=== PATIENT | male | born 1945 | race Caucasian/White ===

== ENCOUNTER 2016-10-19 11:56 | Emergency (ER) | payer MEDICARE ==
[2011-02-15 09:12] VITALS: BMI 26.6
[2016-10-19 12:49] LABS: APPEARANCE HAZY (CLEAR); BACTERIA MODERATE /hpf (NONE SEEN); BILIRUBIN NEGATIVE (NEGATIVE); COLOR YELLOW (YELLOW); EPITHELIAL CELLS 0-5 /hpf (0-5); GLUCOSE NEGATIVE (NEGATIVE); KETONE NEGATIVE (NEGATIVE); LEUKOCYTE ESTERASE 1+ (NEGATIVE); NITRITE POSITIVE (NEGATIVE); PROTEIN NEGATIVE (NEGATIVE); RED CELLS - URINE OCC /hpf (0-5); SPECIFIC GRAVITY 1.015 (1.005-1.020); UROBILINOGEN NORMAL (NORMAL); WHITE CELLS - URINE >50 /hpf (0-5)
[2016-10-19 12:51] LABS: UDS - AMPHET NEGATIVE QUAL (NEGATIVE); UDS - BARB NEGATIVE QUAL (NEGATIVE); UDS - BENZO NEGATIVE QUAL (NEGATIVE); UDS - COCAINE NEGATIVE QUAL (NEGATIVE); UDS - METH NEGATIVE QUAL (NEGATIVE); UDS - OPIATE NEGATIVE QUAL (NEGATIVE); UDS - PCP NEGATIVE QUAL (NEGATIVE); UDS - THC NEGATIVE QUAL (NEGATIVE)
[2016-10-19 12:52] LABS: BASOPHILS 0.3 % (0.0-2.0); EOSINOPHILS 0.3 % (0-7); HEMATOCRIT 45.3 % (42.0-54.0); HEMOGLOBIN 15.7 g/dL (13.5-17.5); IMMATURE GRANULOCYTES 0.4 % (0-5); LYMPHOCYTES 16.6 % (15-50); MCH 34.1 pg (26.0-34.0); MCHC 34.7 g/dL (31.0-37.0); MCV 98.5 fL (80.0-100.0); MEAN PLATELET VOLUME 10.3 fL (7.4-10.4); MONOCYTES 10.4 % (2-11); PLATELET COUNT 176 10x3/uL (130-400); RDW 13.6 % (11.5-14.5); WBC 7.7 10x3/uL (4.8-10.8)
[2016-10-19 13:09] LABS: ALBUMIN 3.9 g/dL (3.4-5.0); ANION GAP 10.5 mmol/L (8-16); BILIRUBIN - TOTAL 0.5 mg/dL (0.2-1.3); CALCIUM 9.1 mg/dL (8.5-10.1); CARBON DIOXIDE 30.5 mmol/L (21.0-32.0); CREATININE - SERUM 1.7 mg/dL (0.6-1.3); PROTEIN - SERUM 7.7 g/dL (6.4-8.2)
[2016-10-31 09:19] VITALS: BMI 26.3
== END 2016-10-19 17:08 | disposition short-term general hospital (02) ==
LOC: D.ER 11:56
PROVIDERS: Emergency Medicine
DX: R45.851 Suicidal ideations (principal); F10.10 Alcohol abuse, uncomplicated; E86.0 Dehydration; N39.0 Urinary tract infection, site not specified; F41.9 Anxiety disorder, unspecified; I27.2 Other secondary pulmonary hypertension

== ENCOUNTER 2016-10-28 17:26 | Inpatient (IN) | payer MEDICARE ==
[~2016-10-28] VITALS: Ht 175.3 cm; Wt 80.9 kg
[2016-10-28 18:30] LABS: APPEARANCE CLEAR (CLEAR); BILIRUBIN NEGATIVE (NEGATIVE); COLOR YELLOW (YELLOW); GLUCOSE NEGATIVE (NEGATIVE); KETONE NEGATIVE (NEGATIVE); LEUKOCYTE ESTERASE NEGATIVE (NEGATIVE); NITRITE NEGATIVE (NEGATIVE); PROTEIN TRACE mg/dL (NEGATIVE); UROBILINOGEN NORMAL (NORMAL)
[2016-10-28 18:32] LABS: BASOPHILS 0.2 % (0.0-2.0); EOSINOPHILS 1.3 % (0-7); HEMATOCRIT 45.4 % (42.0-54.0); HEMOGLOBIN 15.9 g/dL (13.5-17.5); IMMATURE GRANULOCYTES 0.3 % (0-5); LYMPHOCYTES 16.5 % (15-50); MCH 34.6 pg (26.0-34.0); MCV 98.7 fL (80.0-100.0); MEAN PLATELET VOLUME 10.5 fL (7.4-10.4); MONOCYTES 11.5 % (2-11); NEUTROPHILS 70.2 % (40-80); RDW 13.5 % (11.5-14.5); WBC 10.8 10x3/uL (4.8-10.8)
[2016-10-28 18:35] LABS: UDS - AMPHET NEGATIVE QUAL (NEGATIVE); UDS - BARB NEGATIVE QUAL (NEGATIVE); UDS - BENZO NEGATIVE QUAL (NEGATIVE); UDS - COCAINE NEGATIVE QUAL (NEGATIVE); UDS - METH NEGATIVE QUAL (NEGATIVE); UDS - OPIATE NEGATIVE QUAL (NEGATIVE); UDS - PCP NEGATIVE QUAL (NEGATIVE); UDS - THC NEGATIVE QUAL (NEGATIVE)
[2016-10-28 18:38] LABS: PLATELET COUNT 224 10x3/uL (130-400)
[2016-10-28 19:01] LABS: ALKALINE PHOSPHATASE 58 U/L (46-116); ALT (SGPT) 82 U/L (10-68); BILIRUBIN - TOTAL 0.41 mg/dL (0.2-1.3); CALC OSMOLALITY 289 mosm/kg (275-300); CALCIUM 9.2 mg/dL (8.5-10.1); CARBON DIOXIDE 26.6 mmol/L (21.0-32.0); CHLORIDE - SERUM 102 mmol/L (98-107); CREATININE - SERUM 1.7 mg/dL (0.6-1.3); GLUCOSE 109 mg/dL (74-106); POTASSIUM - SERUM 4.9 mmol/L (3.5-5.1); PROTEIN - SERUM 8.2 g/dL (6.4-8.2); SODIUM 137 mmol/L (136-145); UREA NITROGEN 55 mg/dL (7-18); eGFR NON AFRICAN AMERICAN 43 mL/min (90-120)
[2016-10-28 19:02] LABS: ALCOHOL - BLOOD (MEDICAL) < 3.0 mg/dL (0.0-10.0)
[2016-10-28 22:15] VITALS: BP 127/74
[2016-10-28] MEDS ORDERED: DYAZIDE 37.5/251 CAP PO (22:47)
[2016-10-28] MEDS ORDERED: NEURONTIN600 MG PO (22:48)
[2016-10-28] MEDS ORDERED: COREG12.5 MG PO (22:49)
[2016-10-28] MEDS ORDERED: CYMBALTA30 MG PO (22:50)
[2016-10-28] MEDS ORDERED: TOPROL XL50 MG PO (22:56)
[2016-10-28] MEDS ORDERED: HYDROXYZINE HCL10 MG PO (22:58)
[2016-10-28] MEDS ORDERED: CHLORTHALIDONE25 MG PO (22:59)
--- NOTE | 2016-10-29 01:27 | NUR ---
RECIEVED FROM EMERGENCY DEPARTMENT VIA WHEELCHAIR AT 2215, ALERT AND ORIENTED X 4, ADMITED FOR SUICIDAL IDEATION, PLAN TO TAKE ALL HIS TRAZADONE, NO S.I. AT THIS TIME, CONTRACTED FOR SAFETY, CONSENTS SIGNED , MONITORED FOR FOR SUICIDE ATTEMPTS, ORIENTED TO UNIT AND HIS ROOM, WILL CONTINUE TO MONITOR, CONTINUE PLAN OF CARE.
[2016-10-29 04:09] VITALS: BP 127/74; BMI 26.2
[2016-10-29 06:10] LABS: BASOPHILS 0.3 % (0.0-2.0); EOSINOPHILS 1.4 % (0-7); HEMATOCRIT 41.9 % (42.0-54.0); HEMOGLOBIN 14.7 g/dL (13.5-17.5); IMMATURE GRANULOCYTES 0.3 % (0-5); MCH 34.2 pg (26.0-34.0); MCHC 35.1 g/dL (31.0-37.0); MCV 97.4 fL (80.0-100.0); MEAN PLATELET VOLUME 9.8 fL (7.4-10.4); RDW 13.4 % (11.5-14.5)
[2016-10-29 06:14] LABS: PLATELET COUNT 173 10x3/uL (130-400); WBC 7.9 10x3/uL (4.8-10.8)
[2016-10-29 06:28] LABS: HEMOGLOBIN A1C 5.6 % (4.8-6.0)
[2016-10-29 06:32] LABS: ALBUMIN 3.5 g/dL (3.4-5.0); ANION GAP 14.6 mmol/L (8-16); BILIRUBIN - TOTAL 0.5 mg/dL (0.2-1.3); CALCIUM 9.4 mg/dL (8.5-10.1); CARBON DIOXIDE 24.6 mmol/L (21.0-32.0); CHOL - HDL RATIO 4.3 ratio (2.3-4.9); CREATININE - SERUM 1.4 mg/dL (0.6-1.3); LDL-HDL RATIO 1.4 ratio (1.5-3.5); POTASSIUM - SERUM 4.2 mmol/L (3.5-5.1); PROTEIN - SERUM 7.4 g/dL (6.4-8.2); THYROID STIMULATING HORMONE 1.71 uIU/mL (0.36-3.74)
[2016-10-29 08:38] VITALS: BP 129/83
--- NOTE | 2016-10-29 10:24 | NUR ---
PT DENIES SUICIDAL IDEATION BUT HE DOES ADMIT TO FEELING THAT WAY PRIOR TO COMING TOT HE HOSPITAL. "I FEEL SAFE HERE AND I KNOW I AM GOING TO GET HELP". PT DOES EXPRESS SEVERE ANXIETY. COPING SKILLS REVIEWED WITH PT AND ENCOURAGED PT TO EXPRESS FEELINGS TO STAFF. DENIES DEPRESSION. MED COMPLIANT. WILL CONTINUE WITH PLAN OF CARE.
[2016-10-29 19:30] VITALS: BP 150/89
--- NOTE | 2016-10-29 20:13 | NUR ---
RECEIVED IN DAYROOM. SETTING IN RECLINER WITH PEERS AT HIS SIDE, NO SOCIALIZING. CALM AND COOPERATIVE WITH CARE AND ASSESSMENT. STATES THAT HE FEELS GOOD AT THIS TIME. ENCOURAGE TO EXPRESS NEEDS. CONTINUES TO SET QUIETLY IN CHAIR. CONTINUE PLAN OF CARE
[2016-10-30 10:32] LABS: APPEARANCE CLEAR (CLEAR); BACTERIA MANY /hpf (NONE SEEN); BILIRUBIN NEGATIVE (NEGATIVE); COLOR YELLOW (YELLOW); EPITHELIAL CELLS RARE /hpf (0-5); GLUCOSE NEGATIVE (NEGATIVE); KETONE NEGATIVE (NEGATIVE); LEUKOCYTE ESTERASE 1+ (NEGATIVE); NITRITE POSITIVE (NEGATIVE); PROTEIN NEGATIVE (NEGATIVE); RED CELLS - URINE RARE /hpf (0-5); UROBILINOGEN NORMAL (NORMAL)
[2016-10-30 11:20] VITALS: BP 138/69
--- NOTE | 2016-10-30 17:55 | NUR ---
Alert and oriented time three. Verbalized yes he did try to harm self but " I was feeling pretty down, but i'm hopeful now." Isolatory in day room but participated in group. Contracted for safety. Encouraged to verbalize feelings and socialize with peers. Compliant with medications. Continue plan of care.
--- NOTE | 2016-10-30 19:59 | NUR ---
RECEIVED IN DAYROOM. SETTING IN RECLINER. ISOLATING FROM OTHERS. DENIES THOUGHTS OF SELF HARM AT THIS TIME. ENCOURAGE TO EXPRESS NEEDS AND FEELINGS. ALERT AND ORIENTED X4. CONTINUES TO SET QUIETLY TO HIMSELF. CONTINUE PLAN OF CARE
[2016-10-30 20:37] VITALS: BP 138/81
[2016-10-31 06:13] LABS: RAPID PLASMA REAGIN Non Reactive (Non Reactive); VITAMIN D 25 HYDROXY 13.5 ng/mL (30.0-100.0)
[2016-10-31 09:19] VITALS: Ht 175.3 cm; Wt 80.9 kg
[2016-10-31 14:08] VITALS: BP 160/97
[2016-10-31 14:23] LABS: FOLATE (FOLIC ACID) - SERUM 19.5 ng/mL (>3.0)
--- NOTE | 2016-10-31 14:57 | PSY ---
PATIENT NAME:ALBERTO OVERTON JR MEDICAL RECORD: [id number] : 49 LOCATION:[facility] ADMISSION DATE: 10/28/16 ACCOUNT: [id number] PSYCHIATRIC EVALUATION DATE OF EVALUATION: 10/30/16 Psychiatric Evaluation IDENTIFYING DATA: The patient is 71 years old and he is admitted to the hospital on a voluntary basis. CHIEF COMPLAINT: Suicidal thoughts. HISTORY OF PRESENT ILLNESS: The patient presented to the Emergency Room for the third time in recent weeks and expressed a high degree of distress. He said he was going to kill himself. He said he had a plan. He endorsed numerous neurovegetative depressive symptoms. He indicated that he had recently been released from alcohol detoxification at the [facility] and is having overwhelming emotional distress and the patient was admitted to the hospital for evaluation and treatment of these underlying symptoms. PAST MEDICAL HISTORY: Significant for hypertension. PAST PSYCHIATRIC HISTORY: Significant for longstanding problems with anxiety and alcoholism. He has never attempted to harm himself in the past. He has never threatened to harm himself in the past. He says it has crossed his mind from time to time over the years, but he has never done so. He has never been hospitalized for any psychiatric or behavioral reasons. However, he was recently in the detox program at the [facility] and he did complete it. FAMILY HISTORY: Significant for anxiety and substance abuse. ALLERGIES: No known drug allergies. MEDICATIONS: Include gabapentin, Cymbalta, metoprolol, Coreg, Atarax. SOCIAL HISTORY: The patient is retired. He is originally from [place], [place]. 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 He has supportive family members and no history of legal entanglements. MENTAL STATUS EXAMINATION: The patient is awake, alert and oriented to person, place, time and situation. His mood is anxious. His affect is constricted. Thought processes are circumstantial. Memory, concentration and abstraction abilities are moderately impaired and he denies any active intent to harm himself or others as well as overt psychotic symptoms. ASSETS: Supportive family members. LIABILITIES: Limited insight. DIAGNOSTIC IMPRESSION: AXIS I: Major depression, severe, single episode with suicidal thoughts. Alcohol abuse. AXIS II: None. AXIS III: Hypertension. AXIS IV: Mild stressors. AXIS V: Global assessment of functioning is 35. PLAN: At this time, the patient is admitted to the hospital secondary to anxiety, probably associated with alcohol abuse and withdrawal. I do plan to treat him with Cymbalta and will increase the dose slightly. He says that the anxiety was helped for many years with Effexor and that it stopped working and that is why it was discontinued. I do not know what dose he was taking and he cannot recall. He does name a number of other medications that did not help. Interestingly, he did not appear to be drug seeking for a benzodiazepine, although he may try to do so tomorrow. I do not feel comfortable with him leaving the hospital today given how anxious he is and how recently, he was having very suicidal thoughts. TRANSINT:[id number] Voice Confirmation ID: [id number] DOCUMENT ID: [id number] NELA RAMOS MD at 1457 CC: [id number] DICTATION DATE: 10/30/16 1346 DOLLY PUSHER: 10/30/16 1423 ADM IN [facility] [address] [place] [address]
--- NOTE | 2016-10-31 16:40 | NUR ---
RECEIVED THIS AM SITTING IN CHAIR IN HALLWAY AT NURSES STATION.IS ORIENTED ,CALM AND COOPERATIVE.SITS AND OBSERVES PEERS BUT IS NOT OBSERVED TALKING WITH PEERS.ASK FOR MED TO CALM NERVES,ATIVAN PO GIVEN PER ORDERS.COMPLIANT WITH MEDS.WILL CONTINUE WITH PLAN OF CARE,MONITOR FOR CHANGES AND SAFETY.
[2016-10-31 19:28] VITALS: BP 133/86
--- NOTE | 2016-10-31 23:16 | NUR ---
RECEIVED IN DAYROOM. SETTING IN WHEELCHAIR ISOLATED FROM HIS PEERS. NOT SOCIALIZING. CALM AND COOPERATIVE WITH CARE AND ASSESSMENT. DENIES THOUGHT OF SELF HARM AT THIS TIME. ENCOURAGE TO EXPRESS NEEDS. PM MEDS GIVEN ORDERED. RESTING EYES CLOSED AT THIS TIME. CONTINUE PLAN OF CARE
[2016-11-01 07:57] VITALS: BP 154/95
--- NOTE | 2016-11-01 11:10 | NUR ---
Patient asked this nurse if he had ativan ordered for when he requests it. Did look at patient's MAR and the ativan has been discontinued, did let patient be aware.
--- NOTE | 2016-11-01 11:30 | NUR ---
Dr. Juarez visited with patient and patient said "I hate this f---ing room" Dr. Juarez asked him if he would like to go home. Patient said "No, I just don't think I can provide food for myself" Dr. Juarez made suggestions to go to [facility] or some place similar. Patient said he did not have funds, Dr. Juarez said he would speak with [facility] Hadoop Analyst to see what is available to him. Patient is in agreement.
--- NOTE | 2016-11-01 11:45 | NUR ---
Patient moved out of the day room and sat in the tapia way alone.
--- NOTE | 2016-11-01 12:46 | PN ---
PATIENT:ALBERTO OVERTON JR MEDICAL RECORD: [id number] LOCATION:[facility] ADMISSION DATE: 10/28/16 PROGRESS NOTE DATE OF SERVICE: 10/31/2016 SUBJECTIVE: The patient's case was discussed with staff. He has no new complaint. OBJECTIVE: The patient denies intent to harm himself or others. He does tolerate his medications well. He is participating in treatment reasonably well. ASSESSMENT: No change in diagnoses. PLAN: The patient still has a great deal of anxiety. He has had no psychotic symptoms and does not want to harm himself. I am going to increase his Cymbalta tomorrow and anticipate he could be transitioned out of the hospital soon. TRANSINT:[id number] Voice Confirmation ID: [id number] DOCUMENT ID: [id number] NELA RAMOS MD at 1246 CC: [id number] DICTATION DATE: 10/31/16 1523 DIVERSIFIED CROPS SUPERVISOR: 10/31/16 1555 ADM IN [id number] [place] [address]
--- NOTE | 2016-11-01 13:54 | NUR ---
B.) Alert and oriented times four. Pleasant and cooperative with care. I.) Administer medications and monitor compliance. Monitor for any suicidal ideations. Encourage group participation and monitor safety. R.) Compliant with medications. No suicidal ideations, [facility] Contracted for safety. Sits quietly in his chair and sometimes will isolate and briefly socialize. Safety maintained. P.) Continue plan of care.
--- NOTE | 2016-11-01 14:46 | NUR ---
Patient just told staff that he would like to go home, he said [facility] Contacted Dr. Juarez and he said "Sure, he is not suicidal or homicidal, so he may go" states he will discharge him as soon as he has computer access. Will relay this to patient.
[2016-11-01] MEDS ORDERED: VITAMIN D5000 UNIT PO (16:51)
[2016-11-01] MEDS ORDERED: CYMBALTA30 MG PO (16:51)
[2016-11-01] MEDS ORDERED: FOLIC ACID1 MG PO (16:52)
[2016-11-01] MEDS ORDERED: THIAMINE HCL50 MG PO (16:53)
--- NOTE | 2016-11-01 18:00 | NUR ---
Patient requested to get a Taxi to home, called house superviser and ER Admissions and received voucher for patient.
--- NOTE | 2016-11-01 18:30 | NUR ---
Patient is provided d/c explaination, ron called to pharmacy, handwritten med for ecoli in urine sent with patient, belongings brought in from ER safe, patient changed into clothes from scrubs. Provided information about [facility], patient said he is going to see Dr. Wolf at the [place], did try to call them for an appt., but offices closed.
--- NOTE | 2016-11-01 18:48 | NUR ---
Patient d/c'd from unit, d/c orders, patient escorted to ER for taxi drive home.
--- NOTE | 2016-11-02 14:53 | PN ---
PATIENT:ALBERTO OVERTON JR MEDICAL RECORD: [id number] LOCATION:[facility] ADMISSION DATE: 10/28/16 PROGRESS NOTE DATE OF SERVICE: 11/01/2016 SUBJECTIVE: The patient's case was discussed with staff. He has no new complaint. OBJECTIVE: The patient is in good behavioral control with limited insight about his condition. He tolerates his medicines well. He denies that he would seek to harm himself. ASSESSMENT: No change in diagnoses. PLAN: Current medicines and therapies have been reviewed and will be maintained. Long-term prognosis is guarded. The patient is going to be referred to inpatient residential substance abuse treatment. TRANSINT:[id number] Voice Confirmation ID: [id number] DOCUMENT ID: [id number] NELA RAMOS MD at 1453 CC: [id number] DICTATION DATE: 11/01/16 1256 LEAD RECREATION ASSISTANT: 11/01/16 1314 DIS IN 11/01/16 [id number] [place] [address]
--- NOTE | 2016-11-09 13:22 | DS ---
PATIENT:ALBERTO OVERTON JR :49 MEDICAL RECORD: [id number] DISCHARGE SUMMARY ADMISSION DATE: 10/28/16 DISCHARGE DATE: 11/01/16 Psychiatric Discharge Summary IDENTIFYING DATA: The patient is 71 years old and he was admitted to the hospital on a voluntary basis secondary to suicidal thoughts. The patient presented to the Emergency Room and expressed a high degree of distress. He said he was going to kill himself and that he had a plan. He endorsed numerous neurovegetative depressive symptoms, he said he had recently been released from an alcohol detoxification program at the [facility] and was having overwhelming emotional distress. He was admitted to the behavioral unit because of his depressive symptoms and suicidal thoughts. HOSPITAL COURSE: The patient was admitted to the hospital and fully evaluated from both the medical, psychological, and social standpoint. The patient was engaged in some drug seeking behavior, insisting that he needed a benzodiazepine to calm his anxiety. He minimized his depressive symptoms which were significant. He initially did not express a desire for benzodiazepine, but quickly was insisting that something had to be done for his overwhelming anxiety. He denied being suicidal and was being referred to an alcohol treatment program, but abruptly right before being transferred to it, decided he did not want to go and demanded to go home. DISCHARGE DIAGNOSES: AXIS I: Major depression, severe, single episode with suicidal thoughts. Alcohol use disorder. AXIS II: None. AXIS III: Hypertension. AXIS IV: Moderate stressors. AXIS V: Global assessment of functioning is 45. PLAN: At the time of discharge, the patient was alert, oriented, had a euthymic mood and no thoughts of harming himself or others. He was taking an antidepressant. He has an established relationship with psychiatrist at the [facility] outpatient [facility] and wanted to return to see him. He said he would go to Alcoholics Anonymous and was given a list of the local meetings. He refused to go to any kind of inpatient or residential substance abuse treatment program. On the whole, I think his prognosis is poor. I say this only because he has no support system to speak of and I doubt that he is going to refrain from alcohol use. He is insisting that he does not want to drink and will not drink as long as something is done to treat his anxiety, but the only thing that he will accept as reasonable to treat his anxiety is a benzodiazepine, which he is angry I would not prescribe. He says he is not going to drink. I do think he is lying to me, but I doubt he is going to be able to control himself. I do think he will go to his outpatient appointments with Dr. Wolf at the [facility]. He likes his outpatient psychiatrist, has a good relationship with him and says he will keep that appointment. I do not think he will go to outpatient AA meetings, but I hope he will. I told him that he can come back to the Emergency Room at any time should he resume drinking once some other kind of treatment or have any more suicidal thoughts. Again, his long-term prognosis is entirely contingent upon his not drinking and following through with outpatient treatment recommendations. He follows through with them, I think his prognosis is good. If he does not, I think the possibility or probability of a bad outcome is DISCHARGE SUMMARY REPORT [id number] ALBERTO OVERTON JR likely. I hope he will not drink again and if he returns I will do anything that is reasonable to help him short of giving him a prescription for Valium. TRANSINT:[id number] Voice Confirmation ID: [id number] DOCUMENT ID: [id number] NELA RAMOS MD at 1322 CC: [id number] DICTATION DATE: 11/08/16 164 GLASS CUT OFF SUPERVISOR: 11/09/16 1144 DIS IN 11/01/16 [id number] [place] [address]
== END 2016-11-01 18:50 | disposition home or self-care (01) | DRG 885 ==
LOC: D.ER 17:26 → D.PSYCH 21:29
PROVIDERS: Emergency Medicine; ADMIT Psychiatry & Neurology Psychiatry
DX: F32.2 Major depressive disorder, single episode, severe without psychotic features (principal); R45.851 Suicidal ideations; N39.0 Urinary tract infection, site not specified; F41.9 Anxiety disorder, unspecified; I10 Essential (primary) hypertension; J44.9 Chronic obstructive pulmonary disease, unspecified; E55.9 Vitamin D deficiency, unspecified; F10.10 Alcohol abuse, uncomplicated; M10.9 Gout, unspecified; M19.90 Unspecified osteoarthritis, unspecified site; K52.9 Noninfective gastroenteritis and colitis, unspecified; N28.9 Disorder of kidney and ureter, unspecified; K42.9 Umbilical hernia without obstruction or gangrene; G47.00 Insomnia, unspecified

== ENCOUNTER → 2017-01-23 19:50 | Outpatient (CLI) | payer MEDICARE ==
[2016-10-31 09:19] VITALS: BMI 26.3
[~2017-01-23 19:50] MED LIST: CHLORTHALIDONE25 MG PO; COREG12.5 MG PO; CYMBALTA30 MG PO; DYAZIDE 37.5/251 CAP PO; FOLIC ACID1 MG PO; HYDROXYZINE HCL10 MG PO; NEURONTIN600 MG PO; THIAMINE HCL50 MG PO; TOPROL XL50 MG PO; VITAMIN D5000 UNIT PO
== END | disposition home or self-care (01) ==
LOC: D.LAB 19:50
DX: R35.0 Frequency of micturition (principal)

== ENCOUNTER 2017-07-01 09:50 | Emergency (ER) | payer MEDICARE ==
[2016-10-31 09:19] VITALS: BMI 26.3
[2017-07-01 11:24] LABS: BASOPHILS 0.1 % (0-2); EOSINOPHILS 0 % (0-7); HEMATOCRIT 44.8 % (42.0-54.0); HEMOGLOBIN 15.9 g/dL (13.5-17.5); IMMATURE GRANULOCYTES 0.1 % (0-5); LYMPHOCYTES 4.1 % (15-50); MCH 33.1 pg (26.0-34.0); MCHC 35.5 g/dL (31.0-37.0); MCV 93.1 fL (80.0-100.0); MEAN PLATELET VOLUME 10.6 fL (7.4-10.4); MONOCYTES 3.9 % (2-11); NEUTROPHILS 91.8 % (40-80); PLATELET COUNT 205 10x3/uL (130-400); RBC 4.81 10x6/uL (4.20-6.10)
[2017-07-01 11:41] LABS: ALBUMIN 3.9 g/dL (3.4-5.0); ANION GAP 14.2 mmol/L (8-16); BILIRUBIN - TOTAL 0.99 mg/dL (0.2-1.3); CALCIUM 9.3 mg/dL (8.5-10.1); CARBON DIOXIDE 27.6 mmol/L (21.0-32.0); CREATININE - SERUM 1.4 mg/dL (0.6-1.3); PROTEIN - SERUM 7.8 g/dL (6.4-8.2)
[2017-07-01 11:43] LABS: POTASSIUM - SERUM 2.8 mmol/L (3.5-5.1)
[2017-07-01 11:57] LABS: MAGNESIUM - SERUM 1.7 mg/dL (1.8-2.4)
[2017-07-01 12:33] LABS: UDS - AMPHET NEGATIVE QUAL (NEGATIVE); UDS - BARB NEGATIVE QUAL (NEGATIVE); UDS - BENZO NEGATIVE QUAL (NEGATIVE); UDS - COCAINE NEGATIVE QUAL (NEGATIVE); UDS - OPIATE NEGATIVE QUAL (NEGATIVE); UDS - PCP NEGATIVE QUAL (NEGATIVE); UDS - THC NEGATIVE QUAL (NEGATIVE)
[2017-07-01 12:34] LABS: APPEARANCE CLEAR (CLEAR); BILIRUBIN NEGATIVE (NEGATIVE); COLOR YELLOW (YELLOW); GLUCOSE NEGATIVE (NEGATIVE); KETONE NEGATIVE (NEGATIVE); NITRITE NEGATIVE (NEGATIVE); PROTEIN 1+ mg/dL (NEGATIVE); UROBILINOGEN NORMAL (NORMAL)
[2017-07-01 12:35] LABS: BACTERIA FEW /hpf (NONE SEEN); EPITHELIAL CELLS 0-5 /hpf (0-5); HYALINE CAST OCC /lpf (NONE SEEN); RED CELLS - URINE 0-5 /hpf (0-5); WHITE CELLS - URINE 0-5 /hpf (0-5)
== END 2017-07-01 19:20 | disposition short-term general hospital (02) ==
LOC: D.ER 09:50
PROVIDERS: Nurse Practitioner Acute Care
DX: T43.212A Poisoning by selective serotonin and norepinephrine reuptake inhibitors, intentional self-harm, initial encounter (principal); T43.592A Poisoning by other antipsychotics and neuroleptics, intentional self-harm, initial encounter; Y92.029 Unspecified place in mobile home as the place of occurrence of the external cause

== ENCOUNTER 2017-07-22 05:09 | Emergency (ER) | payer OTHER ==
[2016-10-31 09:19] VITALS: BMI 26.3
[2017-07-22 05:44] LABS: BASOPHILS 0.2 % (0-2); EOSINOPHILS 1.1 % (0-7); HEMATOCRIT 39.9 % (42.0-54.0); HEMOGLOBIN 14.1 g/dL (13.5-17.5); IMMATURE GRANULOCYTES 0.2 % (0-5); LYMPHOCYTES 18.1 % (15-50); MCH 32.6 pg (26.0-34.0); MCHC 35.3 g/dL (31.0-37.0); MCV 92.4 fL (80.0-100.0); MEAN PLATELET VOLUME 9.9 fL (7.4-10.4); MONOCYTES 8.4 % (2-11); PLATELET COUNT 191 10x3/uL (130-400); RBC 4.32 10x6/uL (4.20-6.10); RDW 13.7 % (11.5-14.5); WBC 10.4 10x3/uL (4.8-10.8)
[2017-07-22 06:05] LABS: ALBUMIN 3.1 g/dL (3.4-5.0); ALKALINE PHOSPHATASE 82 U/L (46-116); ALT (SGPT) 37 U/L (10-68); BILIRUBIN - TOTAL 0.33 mg/dL (0.2-1.3); CALC OSMOLALITY 281 mosm/kg (275-300); CALCIUM 8.8 mg/dL (8.5-10.1); CARBON DIOXIDE 29.3 mmol/L (21.0-32.0); CHLORIDE - SERUM 105 mmol/L (98-107); CREATININE - SERUM 1.1 mg/dL (0.6-1.3); POTASSIUM - SERUM 3.8 mmol/L (3.5-5.1); PROTEIN - SERUM 6.7 g/dL (6.4-8.2); SODIUM 140 mmol/L (136-145); UREA NITROGEN 18 mg/dL (7-18); eGFR NON AFRICAN AMERICAN 70 mL/min (90-120)
[2017-07-22 06:06] LABS: GLUCOSE 115 mg/dL (74-106)
[2017-07-22 06:14] LABS: AMYLASE - SERUM 52 U/L (25-115); CREATINE KINASE 78 UL (21-232); LIPASE 165 U/L (73-393); PRO BNP 426 pg/mL (0-125); THYROID STIMULATING HORMONE 1.32 uIU/mL (0.36-3.74)
[2017-07-22 06:16] LABS: TROPONIN-I < 0.017 ng/mL (0.000-0.060)
[2017-07-22 06:41] LABS: APPEARANCE CLEAR (CLEAR); BILIRUBIN NEGATIVE (NEGATIVE); COLOR YELLOW (YELLOW); GLUCOSE NEGATIVE (NEGATIVE); KETONE NEGATIVE (NEGATIVE); NITRITE NEGATIVE (NEGATIVE); PROTEIN TRACE mg/dL (NEGATIVE); SPECIFIC GRAVITY 1.015 (1.005-1.020); UROBILINOGEN NORMAL (NORMAL)
[2017-07-22 06:42] LABS: UDS - AMPHET NEGATIVE QUAL (NEGATIVE); UDS - BARB NEGATIVE QUAL (NEGATIVE); UDS - BENZO NEGATIVE QUAL (NEGATIVE); UDS - COCAINE NEGATIVE QUAL (NEGATIVE); UDS - OPIATE NEGATIVE QUAL (NEGATIVE); UDS - PCP NEGATIVE QUAL (NEGATIVE); UDS - THC NEGATIVE QUAL (NEGATIVE)
[2017-07-22 06:45] LABS: BACTERIA MANY /hpf (NONE SEEN); EPITHELIAL CELLS RARE /hpf (0-5); RED CELLS - URINE 0-5 /hpf (0-5)
== END 2017-07-22 09:10 | disposition short-term general hospital (02) ==
LOC: D.ER 05:09
PROVIDERS: Family Medicine
DX: F41.0 Panic disorder [episodic paroxysmal anxiety] (principal); R45.1 Restlessness and agitation; F32.9 Major depressive disorder, single episode, unspecified

== ENCOUNTER 2017-07-24 09:02 | Emergency (ER) | payer OTHER ==
[2016-10-31 09:19] VITALS: BMI 26.3
[2017-07-24 10:06] LABS: BASOPHILS 0.1 % (0-2); EOSINOPHILS 0.6 % (0-7); HEMATOCRIT 41.2 % (42.0-54.0); HEMOGLOBIN 14.2 g/dL (13.5-17.5); IMMATURE GRANULOCYTES 0.3 % (0-5); LYMPHOCYTES 13.6 % (15-50); MCH 32.9 pg (26.0-34.0); MCHC 34.5 g/dL (31.0-37.0); MCV 95.4 fL (80.0-100.0); MEAN PLATELET VOLUME 10.8 fL (7.4-10.4); MONOCYTES 9.7 % (2-11); NEUTROPHILS 75.7 % (40-80); PLATELET COUNT 179 10x3/uL (130-400); RBC 4.32 10x6/uL (4.20-6.10); WBC 9.5 10x3/uL (4.8-10.8)
[2017-07-24 10:20] LABS: ALKALINE PHOSPHATASE 81 U/L (46-116); ALT (SGPT) 36 U/L (10-68); BILIRUBIN - TOTAL 0.25 mg/dL (0.2-1.3); CALC OSMOLALITY 292 mosm/kg (275-300); CALCIUM 9.2 mg/dL (8.5-10.1); CARBON DIOXIDE 27.8 mmol/L (21.0-32.0); CHLORIDE - SERUM 107 mmol/L (98-107); CREATININE - SERUM 0.9 mg/dL (0.6-1.3); PROTEIN - SERUM 6.6 g/dL (6.4-8.2); SODIUM 143 mmol/L (136-145); UREA NITROGEN 23 mg/dL (7-18); eGFR NON AFRICAN AMERICAN 89 mL/min (90-120)
[2017-07-24 10:26] LABS: GLUCOSE 177 mg/dL (74-106)
[2017-07-24 11:55] LABS: UDS - AMPHET NEGATIVE QUAL (NEGATIVE); UDS - BARB NEGATIVE QUAL (NEGATIVE); UDS - BENZO NEGATIVE QUAL (NEGATIVE); UDS - COCAINE NEGATIVE QUAL (NEGATIVE); UDS - OPIATE NEGATIVE QUAL (NEGATIVE); UDS - PCP NEGATIVE QUAL (NEGATIVE); UDS - THC NEGATIVE QUAL (NEGATIVE)
[2017-07-24 12:15] LABS: APPEARANCE HAZY (CLEAR); BILIRUBIN NEGATIVE (NEGATIVE); COLOR YELLOW (YELLOW); GLUCOSE 100 mg/dL (NEGATIVE); KETONE SMALL mg/dL (NEGATIVE); NITRITE NEGATIVE (NEGATIVE); PROTEIN NEGATIVE (NEGATIVE); SPECIFIC GRAVITY 1.015 (1.005-1.020); UROBILINOGEN NORMAL (NORMAL)
[2017-07-24 12:16] LABS: BACTERIA MANY /hpf (NONE SEEN); EPITHELIAL CELLS 0-5 /hpf (0-5); MUCUS <1+ /lpf (NONE SEEN); RED CELLS - URINE RARE /hpf (0-5)
== END 2017-07-24 12:30 | disposition short-term general hospital (02) ==
LOC: D.ER 09:02
PROVIDERS: Emergency Medicine
DX: F41.0 Panic disorder [episodic paroxysmal anxiety] (principal); F10.10 Alcohol abuse, uncomplicated; Z91.5 Personal history of self-harm; F33.9 Major depressive disorder, recurrent, unspecified